=== PATIENT | male | born 1980 | race African-American/Black ===

== ENCOUNTER 2016-03-31 12:33 | Emergency (ER) | payer OTHER ==
[~2016-03-31] VITALS: Ht 154.9 cm; Wt 102.1 kg
[2016-03-31 12:41] VITALS: BP 196/115; PULSE 79; RESP 20; TEMP 98.6; O2SAT 98
--- NOTE | 2016-03-31 12:42 | NUR ---
Patient to ER bed 3 to gown for evaluation. Side rails up. Report given to Sebastian BRITT.
--- NOTE | 2016-03-31 12:50 | NUR ---
Pt AAOx 4 c/o Cough x 2 wks. Pt h/o CHF, DM and HTN. Will continuing to monitor.
--- NOTE | 2016-03-31 13:00 | NUR ---
ER at bedside examining patient.
[2016-03-31 13:36] LABS: BILIRUBIN,URINE NEGATIVE (NEGATIVE); BLOOD, URINE 2+ (NEGATIVE); CLARITY/URINE SL HAZY (CLEAR); COLOR,URINE YELLOW (YELLOW); GLUCOSE,URINE 3+ (NEGATIVE); KETONES,URINE NEGATIVE (NEGATIVE); LEUKOCYTE ESTERASE ,URINE NEGATIVE (NEGATIVE); NITRITE, URINE NEGATIVE (NEGATIVE); PH,URINE 5.5 (5.0-8.0); PROTEIN URINE 3+ (NEGATIVE); UROBILINOGEN,URINE 0.2 (0.2-1.0)
[2016-03-31 13:39] LABS: BASOPHILS # (AUTO) 0.2 K/uL (0.0-0.2); EOSINOPHILS # (AUTO) 0.1 K/uL (0.0-0.4); EOSINOPHILS % (AUTO) 1.7 % (0.0-4.0); HEMATOCRIT 35.2 % (36-54); HEMOGLOBIN 11.7 g/dL (14.0-18.0); LYMPHOCYTES # (AUTO) 1.9 K/uL (1.0-5.5); LYMPHOCYTES % (AUTO) 33.2 % (20.5-51.5); MEAN CORPUSCULAR HEMOGLOBIN 28 pg (27-31); MEAN CORPUSCULAR HGB CONC 33 % (32-36); MEAN CORPUSCULAR VOLUME 84 fL (79.0-98.0); MONOCYTES # (AUTO) 0.3 K/uL (0.0-1.0); MONOCYTES % (AUTO) 5.5 % (1.7-9.3); NEUTROPHILS # (AUTO) 3.3 K/uL (1.8-7.7); NEUTROPHILS % (AUTO) 56.6 % (40.0-70.0); PLATELET COUNT (AUTO) 310 K/uL (130-430); RED CELL DISTRIBUTION WIDTH 12.9 % (9.0-15.0); WHITE BLOOD COUNT (AUTO) 5.8 K/uL (4.8-10.8)
[2016-03-31 13:42] LABS: CALCIUM 8.3 mg/dL (8.4-11.0); CREATININE 1.38 mg/dL (0.55-1.30); POTASSIUM 3.8 mmol/L (3.5-5.1)
[2016-03-31 13:44] LABS: INR 0.9 (0.80-1.20)
[2016-03-31 13:45] LABS: BACTERIA,URINE RARE /HPF (None Seen); MUCUS,URINE 1+ /LPF (None Seen); WBC,URINE NONE SEEN /HPF (0-3)
[2016-03-31 13:47] LABS: ALBUMIN 2.3 g/dL (3.4-4.8); TOTAL BILIRUBIN 0.2 mg/dL (0.0-1.0); TOTAL PROTEIN, SERUM 6.2 g/dL (6.4-8.3)
[2016-03-31] MEDS ORDERED: INSULIN REGULAR, HUMAN 10 UNITS/0.1 ML INJ IVP ONE (14:15)
[2016-03-31] MEDS ORDERED: POTASSIUM CHLORIDE 20 MEQ TAB.PRT.SR PO ONE (14:15)
--- NOTE | 2016-03-31 14:30 | NUR ---
Pt tolerated medication well.Continuing to monitor. Will reasses in 1 hr.
--- NOTE | 2016-03-31 15:20 | NUR ---
Recheck BS 160.Dr Moseley informed. Pt to have meal tray and monitoring, however BP is 195/133. Pt to receive BP meds.
[2016-03-31] MEDS ORDERED: cloNIDine HCL 0.1 MG TABLET PO ONE (15:30)
--- NOTE | 2016-03-31 16:00 | NUR ---
Pt's FS 163, BP 151/90
[2016-03-31 16:30] VITALS: BP 151/90; PULSE 80; RESP 20; TEMP 98.4; O2SAT 98
--- NOTE | 2016-03-31 16:30 | NUR ---
Patient given written and verbal discharge instructions and verbalizes understanding. ER MD discussed with patient the results and treatment provided. Given copies of tests performed in ER. Patient in stable condition. ID arm band removed. IV catheter removed intact and dressing applied, no active bleeding. Patient educated on pain management and to follow up with PMD. Pain Scale 0. Opportunity for questions provided and answered.
== END 2016-03-31 16:30 | disposition home or self-care (01) ==
LOC: SED 12:33
DX: E11.65 Type 2 diabetes mellitus with hyperglycemia (principal); I11.0 Hypertensive heart disease with heart failure; I50.9 Heart failure, unspecified; Z88.0 Allergy status to penicillin; Z91.013 Allergy to seafood
CPT/HCPCS: 36415; 71010; 74000-TC; 80053; 81000-TC; 82962; 83880; 84484; 85025; 85610-TC; 93005; 96374; 99285; J1815

== ENCOUNTER 2017-08-31 11:57 | Inpatient (IN) | payer OTHER ==
[~2017-08-31] VITALS: Ht 154.9 cm; Wt 102.6 kg
[2017-08-31 12:05] VITALS: BP_SYST 228
[2017-08-31] MEDS ORDERED: KETOROLAC TROMETHAMINE 30 MG VIAL IVP ONE (12:30)
[2017-08-31] MEDS ORDERED: ONDANSETRON HCL 4 MG/2 ML VIAL IVP ONE (12:30)
[2017-08-31] MEDS ORDERED: NACL 0.9% 1,000 ML IV ONE (12:30)
[2017-08-31 12:59] LABS: BILIRUBIN,URINE NEGATIVE (NEGATIVE); BLOOD, URINE 3+ (NEGATIVE); CLARITY/URINE SL HAZY (CLEAR); COLOR,URINE YELLOW (YELLOW); GLUCOSE,URINE 3+ (NEGATIVE); KETONES,URINE NEGATIVE (NEGATIVE); LEUKOCYTE ESTERASE ,URINE NEGATIVE (NEGATIVE); NITRITE, URINE NEGATIVE (NEGATIVE); PROTEIN URINE 3+ (NEGATIVE); UROBILINOGEN,URINE 0.2 (0.2-1.0)
[2017-08-31 13:09] LABS: BACTERIA,URINE FEW /HPF (None Seen); WBC,URINE 0-3 /HPF (0-3)
[2017-08-31 13:12] LABS: CALCIUM 8.2 mg/dL (8.4-11.0); POTASSIUM 4.7 mmol/L (3.5-5.1)
[2017-08-31 13:13] LABS: BASOPHILS # (AUTO) 0.1 K/uL (0.0-0.2); BASOPHILS % (AUTO) 1.7 % (0.0-2.0); EOSINOPHILS # (AUTO) 0.1 K/uL (0.0-0.4); EOSINOPHILS % (AUTO) 2.8 % (0.0-4.0); HEMATOCRIT 35.7 % (36-54); HEMOGLOBIN 11.9 g/dL (14.0-18.0); LYMPHOCYTES # (AUTO) 1.5 K/uL (1.0-5.5); LYMPHOCYTES % (AUTO) 30.4 % (20.5-51.5); MEAN CORPUSCULAR HEMOGLOBIN 28 pg (27-31); MEAN CORPUSCULAR HGB CONC 34 % (32-36); MEAN CORPUSCULAR VOLUME 84 fL (79.0-98.0); MONOCYTES # (AUTO) 0.3 K/uL (0.0-1.0); MONOCYTES % (AUTO) 5.8 % (1.7-9.3); NEUTROPHILS # (AUTO) 2.8 K/uL (1.8-7.7); NEUTROPHILS % (AUTO) 59.3 % (40.0-70.0); PLATELET COUNT (AUTO) 256 K/uL (130-430); RED BLOOD CELL COUNT(AUTO) 4.25 MIL/uL (4.2-6.2); RED CELL DISTRIBUTION WIDTH 14.1 % (9.0-15.0); WHITE BLOOD COUNT (AUTO) 4.8 K/uL (4.8-10.8)
[2017-08-31 13:15] LABS: INR 0.9 (0.80-1.20); PROTHROMBIN TIME 9.2 SECS (9.5-12.5)
[2017-08-31] MEDS ORDERED: hydrALAZINE HCL 20 MG/ML VIAL IVP ONE (13:15)
[2017-08-31 13:16] LABS: CREATININE 8.77 mg/dL (0.55-1.30)
[2017-08-31 13:17] LABS: ALBUMIN 2.5 g/dL (3.4-4.8); TOTAL BILIRUBIN 0.4 mg/dL (0.0-1.0)
[2017-08-31] MEDS ORDERED: INSU100I26 SQ (13:56)
[2017-08-31] MEDS ORDERED: LISI-600 PO (13:56)
[2017-08-31] MEDS ORDERED: METOPROLOL TARTRATE 5 MG/5 ML VIAL IVP ONE (14:15)
[2017-08-31] MEDS ORDERED: D5NS 1,000 ML IV ONE (14:15)
[2017-08-31] MEDS ORDERED: LEVOFLOXACIN 500 MG/D5W 100 ML IV ONE (14:15)
[2017-08-31 15:06] VITALS: BP_SYST 140
[2017-08-31] MEDS ORDERED: ONDANSETRON HCL 4 MG/2 ML VIAL IVP PRN ×2 (16:00→22:15)
[2017-08-31] MEDS ORDERED: ACETAMINOPHEN 325 MG TABLET PO PRN ×2 (16:00→22:15)
[2017-08-31 16:50] VITALS: BP_SYST 152
[2017-08-31] MEDS: HYDROcodone/ACETAMIN 5-325 MG TAB (NORCO/ VICODIN) PO PRN ×2 (19:30→23:10)
[2017-08-31 20:00] VITALS: BP_SYST 145
[2017-08-31] MEDS ORDERED: HYDROcodone/ACETAMIN 5-325 MG TAB (NORCO/ VICODIN) PO PRN (22:15)
[2017-08-31] MEDS ORDERED: DEXTROSE 50% JECT 50 ML DISP.SYRIN IVP PRN (22:15)
[2017-08-31] MEDS ORDERED: LORazepam 2 MG/ML VIAL IVP PRN (22:15)
[2017-08-31] MEDS: NACL 0.9% 1,000 ML IV SCH (23:09)
[2017-09-01] VITALS (7 sets, daily range): BP systolic 102–200
[2017-09-01] MEDS: HYDROcodone/ACETAMIN 10-325 MG TAB PO PRN ×3 (03:24→15:52)
[2017-09-01] MEDS: INSULIN REGULAR, HUMAN 100 UNITS/ML, 10 ML VIAL (novoLIN R) SUBCUT PRN ×2 (06:10→11:27)
[2017-09-01 06:32] LABS: CALCIUM 7.8 mg/dL (8.4-11.0); PHOSPHORUS 5.8 mg/dL (2.7-4.5); POTASSIUM 4.2 mmol/L (3.5-5.1)
[2017-09-01 06:39] LABS: BASOPHILS % (AUTO) 0.9 % (0.0-2.0); EOSINOPHILS # (AUTO) 0.1 K/uL (0.0-0.4); EOSINOPHILS % (AUTO) 2.7 % (0.0-4.0); HEMOGLOBIN 11.4 g/dL (14.0-18.0); LYMPHOCYTES % (AUTO) 42.2 % (20.5-51.5); MEAN CORPUSCULAR HEMOGLOBIN 29 pg (27-31); MEAN CORPUSCULAR HGB CONC 35 % (32-36); MEAN CORPUSCULAR VOLUME 83 fL (79.0-98.0); MONOCYTES # (AUTO) 0.3 K/uL (0.0-1.0); NEUTROPHILS # (AUTO) 2.3 K/uL (1.8-7.7); NEUTROPHILS % (AUTO) 48.2 % (40.0-70.0); PLATELET COUNT (AUTO) 229 K/uL (130-430); RED BLOOD CELL COUNT(AUTO) 3.99 MIL/uL (4.2-6.2); RED CELL DISTRIBUTION WIDTH 14.2 % (9.0-15.0); WHITE BLOOD COUNT (AUTO) 4.7 K/uL (4.8-10.8)
[2017-09-01 06:41] LABS: TOTAL IRON BIND. CAPACITY 176 ug/dL (250-450)
[2017-09-01 06:44] LABS: CREATININE 8.4 mg/dL (0.55-1.30)
[2017-09-01 07:08] LABS: C-REACTIVE PROTEIN QUANT 0.6 mg/dL (0-0.5)
[2017-09-01 07:39] LABS: ERYTHROCYTE SEDIMENTATION RATE 38 MM/HR (0-15)
[2017-09-01] MEDS: LISINOPRIL 20 MG TABLET PO SCH (08:54)
[2017-09-01] MEDS: NACL 0.9% 1,000 ML IV SCH ×3 (09:06→21:59)
[2017-09-01] MEDS: LEVOFLOXACIN 500 MG/D5W 100 ML IV SCH (09:56)
[2017-09-01] MEDS ORDERED: GENTAMICIN 80 mg/100 mL NS 100 ML IV ONE (12:30)
[2017-09-01 15:51] LABS: CHLORIDE,URINE RANDOM 56 mmol/L (55-125); URINE SODIUM, RANDOM 43 mmol/L (40-220)
[2017-09-01] MEDS: cloNIDine HCL 0.1 MG TABLET PO PRN (15:52)
[2017-09-02] VITALS (7 sets, daily range): BP systolic 161–199
[2017-09-02] MEDS: cloNIDine HCL 0.1 MG TABLET PO PRN ×3 (00:12→11:22)
[2017-09-02] MEDS: INSULIN REGULAR, HUMAN 100 UNITS/ML, 10 ML VIAL (novoLIN R) SUBCUT PRN ×2 (06:47→20:26)
[2017-09-02] MEDS: LISINOPRIL 20 MG TABLET PO SCH (08:12)
[2017-09-02] MEDS: LEVOFLOXACIN 500 MG/D5W 100 ML IV SCH (08:12)
[2017-09-02] MEDS: HYDROcodone/ACETAMIN 5-325 MG TAB (NORCO/ VICODIN) PO PRN (08:26)
[2017-09-02 08:59] LABS: ANION GAP 7 (5-15); CALCIUM 8.4 mg/dL (8.4-11.0); CHLORIDE 103 mmol/L (98-107); CREATININE 6.82 mg/dL (0.55-1.30); GLUCOSE 122 mg/dL (70-99); PHOSPHORUS 4.6 mg/dL (2.7-4.5); POTASSIUM 4.7 mmol/L (3.5-5.1); SODIUM SERUM 136 mmol/L (136-145); UREA NITROGEN, BLOOD 44 mg/dL (8-21)
[2017-09-02 09:01] LABS: GFR AFRICAN AMERICAN 12 mL/min (>90)
[2017-09-02 09:03] LABS: HEPATITIS B SURFACE AG Negative (Negative); HEPATITIS C VIRUS AB <0.1 s/co ratio (0.0-0.9)
[2017-09-02 09:04] LABS: BASOPHILS # (AUTO) 0.1 K/uL (0.0-0.2); EOSINOPHILS # (AUTO) 0.1 K/uL (0.0-0.4); EOSINOPHILS % (AUTO) 2.4 % (0.0-4.0); HEMOGLOBIN 13.3 g/dL (14.0-18.0); LYMPHOCYTES # (AUTO) 1.9 K/uL (1.0-5.5); LYMPHOCYTES % (AUTO) 34.3 % (20.5-51.5); MEAN CORPUSCULAR HEMOGLOBIN 27 pg (27-31); MEAN CORPUSCULAR HGB CONC 32 % (32-36); MEAN CORPUSCULAR VOLUME 85 fL (79.0-98.0); MONOCYTES # (AUTO) 0.2 K/uL (0.0-1.0); MONOCYTES % (AUTO) 3.9 % (1.7-9.3); NEUTROPHILS # (AUTO) 3.1 K/uL (1.8-7.7); NEUTROPHILS % (AUTO) 57.4 % (40.0-70.0); PLATELET COUNT (AUTO) 293 K/uL (130-430); RED BLOOD CELL COUNT(AUTO) 4.84 MIL/uL (4.2-6.2); RED CELL DISTRIBUTION WIDTH 13.9 % (9.0-15.0); WHITE BLOOD COUNT (AUTO) 5.4 K/uL (4.8-10.8)
[2017-09-02 09:11] LABS: C-REACTIVE PROTEIN QUANT < 0.2 mg/dL (0-0.5)
[2017-09-02 10:20] LABS: ERYTHROCYTE SEDIMENTATION RATE 33 MM/HR (0-15)
[2017-09-02] MEDS ORDERED: NIFEDIPINE 60 MG TABLET.SA (PROCARDIA XL 60 MG) PO ONE (11:15)
[2017-09-02 12:19] LABS: CREATININE,URINE 48.2 MG/DL (30-125)
[2017-09-02] MEDS ORDERED: LISINOPRIL 20 MG TABLET PO ONE (12:40)
[2017-09-02] MEDS ORDERED: METOPROLOL SUCCINATE 50 MG TAB.SR.24H (TOPROL XL) PO ONE (12:40)
[2017-09-02 13:03] LABS: CREATININE 6.8 mg/dL (0.55-1.30)
[2017-09-02 13:04] LABS: PATIENT WEIGHT 218.3 LBS
[2017-09-02 13:05] LABS: CREATININE CLEARANCE,URINE 1.6 ml/min (80-120)
[2017-09-02 13:06] LABS: TPROTEIN U,24HR 1135.9 mg/24HR (0-130)
[2017-09-02] MEDS: NACL 0.9% 1,000 ML IV SCH (16:02)
[2017-09-02 18:18] LABS: ANTI NUCLEAR AB WITH REFLEX Negative (Negative)
[2017-09-02] MEDS: ATORVASTATIN 20 MG TABLET PO SCH (20:22)
[2017-09-02] MEDS: NIFEDIPINE 30 MG TAB.ER.24 PO SCH (20:22)
[2017-09-03] VITALS (7 sets, daily range): BP systolic 142–183
[2017-09-03] MEDS: cloNIDine HCL 0.1 MG TABLET PO PRN ×2 (00:02→17:20)
[2017-09-03] MEDS: NACL 0.9% 1,000 ML IV SCH ×3 (05:06→16:45)
[2017-09-03 06:35] LABS: BASOPHILS # (AUTO) 0.1 K/uL (0.0-0.2); BASOPHILS % (AUTO) 1.4 % (0.0-2.0); EOSINOPHILS # (AUTO) 0.2 K/uL (0.0-0.4); EOSINOPHILS % (AUTO) 2.1 % (0.0-4.0); HEMATOCRIT 40.6 % (36-54); HEMOGLOBIN 13.4 g/dL (14.0-18.0); LYMPHOCYTES # (AUTO) 2.1 K/uL (1.0-5.5); LYMPHOCYTES % (AUTO) 27.8 % (20.5-51.5); MEAN CORPUSCULAR HEMOGLOBIN 28 pg (27-31); MEAN CORPUSCULAR HGB CONC 33 % (32-36); MEAN CORPUSCULAR VOLUME 84 fL (79.0-98.0); MONOCYTES # (AUTO) 0.4 K/uL (0.0-1.0); MONOCYTES % (AUTO) 5.7 % (1.7-9.3); NEUTROPHILS # (AUTO) 4.6 K/uL (1.8-7.7); PLATELET COUNT (AUTO) 287 K/uL (130-430); RED BLOOD CELL COUNT(AUTO) 4.84 MIL/uL (4.2-6.2); RED CELL DISTRIBUTION WIDTH 13.6 % (9.0-15.0); WHITE BLOOD COUNT (AUTO) 7.4 K/uL (4.8-10.8)
[2017-09-03 07:22] LABS: ERYTHROCYTE SEDIMENTATION RATE 16 MM/HR (0-15)
[2017-09-03] MEDS: NIFEDIPINE 60 MG TABLET.SA (PROCARDIA XL 60 MG) PO SCH (08:40)
[2017-09-03] MEDS: METOPROLOL SUCCINATE 50 MG TAB.SR.24H (TOPROL XL) PO SCH (08:40)
[2017-09-03] MEDS: LEVOFLOXACIN 500 MG/D5W 100 ML IV SCH (08:42)
[2017-09-03] MEDS: HYDROcodone/ACETAMIN 10-325 MG TAB PO PRN ×2 (08:47→23:03)
[2017-09-03] MEDS ORDERED: LISINOPRIL 20 MG TABLET PO SCH (09:00)
[2017-09-03 15:29] LABS: ALANINE AMINOTRANSFERASE 23 U/L (12-78); ALBUMIN 2.2 g/dL (3.4-4.8); ANION GAP 9 (5-15); ASPARTATE AMINOTRANSFERASE 26 U/L (10-37); CALCIUM 7.8 mg/dL (8.4-11.0); CHLORIDE 101 mmol/L (98-107); CREATININE 5.58 mg/dL (0.55-1.30); GLUCOSE 125 mg/dL (70-99); PHOSPHORUS 3.8 mg/dL (2.7-4.5); POTASSIUM 5.4 mmol/L (3.5-5.1); SODIUM SERUM 131 mmol/L (136-145); TOTAL BILIRUBIN 0.1 mg/dL (0.0-1.0); UREA NITROGEN, BLOOD 43 mg/dL (8-21)
[2017-09-03 15:32] LABS: C-REACTIVE PROTEIN QUANT < 0.2 mg/dL (0-0.5); GFR AFRICAN AMERICAN 15 mL/min (>90)
[2017-09-03] MEDS: ATORVASTATIN 20 MG TABLET PO SCH (21:37)
[2017-09-03] MEDS: NIFEDIPINE 30 MG TAB.ER.24 PO SCH (21:37)
[2017-09-03] MEDS: INSULIN REGULAR, HUMAN 100 UNITS/ML, 10 ML VIAL (novoLIN R) SUBCUT PRN (21:45)
[2017-09-04] MEDS: DEXTROSE 50% JECT 50 ML DISP.SYRIN IVP PRN ×2 (02:10→08:12)
[2017-09-04 02:28] VITALS: BP_SYST 123
[2017-09-04 06:59] LABS: ANION GAP 6 (5-15); CALCIUM 7.4 mg/dL (8.4-11.0); CHLORIDE 102 mmol/L (98-107); CREATININE 5.39 mg/dL (0.55-1.30); GLUCOSE 132 mg/dL (70-99); PHOSPHORUS 3.7 mg/dL (2.7-4.5); SODIUM SERUM 132 mmol/L (136-145); UREA NITROGEN, BLOOD 48 mg/dL (8-21)
[2017-09-04 07:02] LABS: BASOPHILS # (AUTO) 0.1 K/uL (0.0-0.2); BASOPHILS % (AUTO) 0.9 % (0.0-2.0); EOSINOPHILS # (AUTO) 0.2 K/uL (0.0-0.4); EOSINOPHILS % (AUTO) 3.4 % (0.0-4.0); HEMATOCRIT 37.4 % (36-54); HEMOGLOBIN 12.7 g/dL (14.0-18.0); LYMPHOCYTES # (AUTO) 2.3 K/uL (1.0-5.5); LYMPHOCYTES % (AUTO) 40.8 % (20.5-51.5); MEAN CORPUSCULAR HEMOGLOBIN 28 pg (27-31); MEAN CORPUSCULAR HGB CONC 34 % (32-36); MEAN CORPUSCULAR VOLUME 84 fL (79.0-98.0); MONOCYTES # (AUTO) 0.3 K/uL (0.0-1.0); NEUTROPHILS # (AUTO) 2.7 K/uL (1.8-7.7); NEUTROPHILS % (AUTO) 48.9 % (40.0-70.0); PLATELET COUNT (AUTO) 244 K/uL (130-430); RED BLOOD CELL COUNT(AUTO) 4.48 MIL/uL (4.2-6.2); RED CELL DISTRIBUTION WIDTH 13.8 % (9.0-15.0); WHITE BLOOD COUNT (AUTO) 5.6 K/uL (4.8-10.8)
[2017-09-04] MEDS: NACL 0.9% 1,000 ML IV SCH ×2 (07:14→17:00)
[2017-09-04 07:47] LABS: GFR AFRICAN AMERICAN 15 mL/min (>90); POTASSIUM 5.8 mmol/L (3.5-5.1)
[2017-09-04 07:48] LABS: C-REACTIVE PROTEIN QUANT < 0.2 mg/dL (0-0.5)
[2017-09-04 08:30] VITALS: BP_SYST 169
[2017-09-04] MEDS: LEVOFLOXACIN 500 MG/D5W 100 ML IV SCH (08:40)
[2017-09-04] MEDS: NIFEDIPINE 60 MG TABLET.SA (PROCARDIA XL 60 MG) PO SCH (08:41)
[2017-09-04] MEDS: METOPROLOL SUCCINATE 50 MG TAB.SR.24H (TOPROL XL) PO SCH (08:42)
[2017-09-04] MEDS ORDERED: SODIUM POLYSTYRENE SULFONATE 15 GM/60 ML UDBTL PO ONE (09:15)
[2017-09-04 10:55] LABS: ERYTHROCYTE SEDIMENTATION RATE 4 MM/HR (0-15)
[2017-09-04 12:15] VITALS: BP_SYST 149
[2017-09-04 16:25] VITALS: BP_SYST 132
[2017-09-04] MEDS: HYDROcodone/ACETAMIN 10-325 MG TAB PO PRN (18:38)
[2017-09-04 20:15] VITALS: BP_SYST 160
[2017-09-04] MEDS: ATORVASTATIN 20 MG TABLET PO SCH (21:03)
[2017-09-04] MEDS: NIFEDIPINE 30 MG TAB.ER.24 PO SCH (21:04)
[2017-09-05 00:10] VITALS: BP_SYST 166
[2017-09-05 01:00] VITALS: BP_SYST 135
[2017-09-05 07:05] LABS: ANION GAP 8 (5-15); CALCIUM 7.2 mg/dL (8.4-11.0); CHLORIDE 103 mmol/L (98-107); CREATININE 4.66 mg/dL (0.55-1.30); GLUCOSE 109 mg/dL (70-99); PHOSPHORUS 3.6 mg/dL (2.7-4.5); POTASSIUM 5.7 mmol/L (3.5-5.1); SODIUM SERUM 133 mmol/L (136-145); UREA NITROGEN, BLOOD 56 mg/dL (8-21)
[2017-09-05 07:16] LABS: BASOPHILS # (AUTO) 0.1 K/uL (0.0-0.2); BASOPHILS % (AUTO) 0.8 % (0.0-2.0); EOSINOPHILS # (AUTO) 0.2 K/uL (0.0-0.4); EOSINOPHILS % (AUTO) 2.7 % (0.0-4.0); HEMATOCRIT 45.1 % (36-54); HEMOGLOBIN 14.8 g/dL (14.0-18.0); LYMPHOCYTES # (AUTO) 3.2 K/uL (1.0-5.5); MEAN CORPUSCULAR HEMOGLOBIN 28 pg (27-31); MEAN CORPUSCULAR HGB CONC 33 % (32-36); MEAN CORPUSCULAR VOLUME 84 fL (79.0-98.0); MONOCYTES # (AUTO) 0.3 K/uL (0.0-1.0); MONOCYTES % (AUTO) 4.4 % (1.7-9.3); NEUTROPHILS % (AUTO) 45.1 % (40.0-70.0); PLATELET COUNT (AUTO) 277 K/uL (130-430); RED BLOOD CELL COUNT(AUTO) 5.39 MIL/uL (4.2-6.2); RED CELL DISTRIBUTION WIDTH 14.2 % (9.0-15.0); WHITE BLOOD COUNT (AUTO) 6.8 K/uL (4.8-10.8)
[2017-09-05 07:45] VITALS: BP_SYST 149
[2017-09-05 07:58] LABS: GFR AFRICAN AMERICAN 18 mL/min (>90)
[2017-09-05 07:59] LABS: C-REACTIVE PROTEIN QUANT < 0.2 mg/dL (0-0.5)
[2017-09-05] MEDS: METOPROLOL SUCCINATE 50 MG TAB.SR.24H (TOPROL XL) PO SCH (08:44)
[2017-09-05] MEDS: NIFEDIPINE 60 MG TABLET.SA (PROCARDIA XL 60 MG) PO SCH (08:45)
[2017-09-05] MEDS: LEVOFLOXACIN 500 MG/D5W 100 ML IV SCH ×2 (08:49→14:33)
[2017-09-05] MEDS: FUROSEMIDE 40 MG/4 ML VIAL IVP ONE ×2 (08:49→14:32)
[2017-09-05 08:56] LABS: ERYTHROCYTE SEDIMENTATION RATE 11 MM/HR (0-15)
[2017-09-05] MEDS ORDERED: FUROSEMIDE 20 MG/2 ML VIAL IVP ONE (11:00)
[2017-09-05 11:07] LABS: PROTHROMBIN TIME 9.7 SECS (9.5-12.5)
[2017-09-05] MEDS: cloNIDine HCL 0.1 MG TABLET PO PRN (11:37)
[2017-09-05] MEDS: INSULIN REGULAR, HUMAN 100 UNITS/ML, 10 ML VIAL (novoLIN R) SUBCUT PRN ×3 (11:52→21:28)
[2017-09-05] MEDS: MAGNESIUM SULFATE 50 ML IV ONE ×2 (11:54→16:17)
[2017-09-05 12:55] VITALS: BP_SYST 148
[2017-09-05] MEDS: HYDROcodone/ACETAMIN 10-325 MG TAB PO PRN ×2 (16:18→21:25)
[2017-09-05 16:40] VITALS: BP_SYST 150
[2017-09-05 20:28] VITALS: BP_SYST 153
[2017-09-05] MEDS: NIFEDIPINE 30 MG TAB.ER.24 PO SCH (21:24)
[2017-09-05] MEDS: ATORVASTATIN 20 MG TABLET PO SCH (21:24)
[2017-09-06 00:22] VITALS: BP_SYST 131
[2017-09-06] MEDS: INSULIN REGULAR, HUMAN 100 UNITS/ML, 10 ML VIAL (novoLIN R) SUBCUT PRN ×3 (06:59→21:07)
[2017-09-06 07:06] LABS: EOSINOPHILS # (AUTO) 0.3 K/uL (0.0-0.4); LYMPHOCYTES # (AUTO) 3.3 K/uL (1.0-5.5); NEUTROPHILS # (AUTO) 3.3 K/uL (1.8-7.7); RED BLOOD CELL COUNT(AUTO) 4.91 MIL/uL (4.2-6.2); WHITE BLOOD COUNT (AUTO) 7.4 K/uL (4.8-10.8)
[2017-09-06 07:28] LABS: BASOPHILS # (AUTO) 0.1 K/uL (0.0-0.2); BASOPHILS % (AUTO) 1.6 % (0.0-2.0); EOSINOPHILS % (AUTO) 4.1 % (0.0-4.0); HEMATOCRIT 41.5 % (36-54); HEMOGLOBIN 13.7 g/dL (14.0-18.0); LYMPHOCYTES % (AUTO) 44.5 % (20.5-51.5); MEAN CORPUSCULAR HEMOGLOBIN 28 pg (27-31); MEAN CORPUSCULAR HGB CONC 33 % (32-36); MEAN CORPUSCULAR VOLUME 85 fL (79.0-98.0); MONOCYTES # (AUTO) 0.4 K/uL (0.0-1.0); MONOCYTES % (AUTO) 5.4 % (1.7-9.3); NEUTROPHILS % (AUTO) 44.4 % (40.0-70.0); PLATELET COUNT (AUTO) 260 K/uL (130-430); RED CELL DISTRIBUTION WIDTH 14.6 % (9.0-15.0)
[2017-09-06 07:54] LABS: ANION GAP 7 (5-15); CHLORIDE 102 mmol/L (98-107); CREATININE 4.68 mg/dL (0.55-1.30); GLUCOSE 186 mg/dL (70-99); PHOSPHORUS 4.1 mg/dL (2.7-4.5); SODIUM SERUM 131 mmol/L (136-145); UREA NITROGEN, BLOOD 67 mg/dL (8-21)
[2017-09-06 08:00] VITALS: BP_SYST 154
[2017-09-06 08:06] LABS: GFR AFRICAN AMERICAN 18 mL/min (>90); POTASSIUM 5.9 mmol/L (3.5-5.1)
[2017-09-06 08:07] LABS: C-REACTIVE PROTEIN QUANT < 0.2 mg/dL (0-0.5); CALCIUM 7.4 mg/dL (8.4-11.0)
[2017-09-06] MEDS: SODIUM POLYSTYRENE SULFONATE 15 GM/60 ML UDBTL PO ONE ×2 (08:30→09:16)
[2017-09-06 09:02] LABS: ERYTHROCYTE SEDIMENTATION RATE 10 MM/HR (0-15)
[2017-09-06] MEDS: LEVOFLOXACIN 500 MG/D5W 100 ML IV SCH (09:15)
[2017-09-06] MEDS: NIFEDIPINE 60 MG TABLET.SA (PROCARDIA XL 60 MG) PO SCH (09:15)
[2017-09-06] MEDS: METOPROLOL SUCCINATE 50 MG TAB.SR.24H (TOPROL XL) PO SCH (09:16)
[2017-09-06] MEDS: HYDROcodone/ACETAMIN 10-325 MG TAB PO PRN ×2 (09:28→21:04)
[2017-09-06] MEDS ORDERED: CITRIC ACID/SODIUM CITRATE 30 ML UDC PO ONE (09:45)
[2017-09-06] MEDS ORDERED: DEXTROSE 50% JECT 50 ML DISP.SYRIN IVP ONE (10:15)
[2017-09-06] MEDS ORDERED: INSULIN REGULAR, HUMAN 100 UNITS/ML, 10 ML VIAL SUBCUT ONE (10:15)
[2017-09-06 15:23] LABS: ATYPICAL pANCA <1:20 titer (Neg:<1:20); CYTOPLASMIC (C-ANCA) <1:20 titer (Neg:<1:20); CYTOPLASMIC (P-ANCA) <1:20 titer (Neg:<1:20)
[2017-09-06 16:38] VITALS: BP_SYST 132
[2017-09-06 20:13] VITALS: BP_SYST 131
[2017-09-06] MEDS: NIFEDIPINE 30 MG TAB.ER.24 PO SCH (21:04)
[2017-09-06] MEDS: ATORVASTATIN 20 MG TABLET PO SCH (21:04)
[2017-09-06] MEDS: CITRIC ACID/SODIUM CITRATE 30 ML UDC PO SCH (21:19)
[2017-09-07] MEDS: INSULIN REGULAR, HUMAN 100 UNITS/ML, 10 ML VIAL (novoLIN R) SUBCUT PRN ×2 (06:33→11:35)
[2017-09-07 07:05] LABS: CALCIUM 8.2 mg/dL (8.4-11.0); CREATININE 4.43 mg/dL (0.55-1.30); POTASSIUM 5.7 mmol/L (3.5-5.1)
[2017-09-07 08:00] VITALS: BP_SYST 164
[2017-09-07] MEDS ORDERED: SODIUM POLYSTYRENE SULFONATE 15 GM/60 ML UDBTL PO ONE (09:45)
[2017-09-07] MEDS ORDERED: FUROSEMIDE 40 MG/4 ML VIAL IVP ONE (09:45)
[2017-09-07] MEDS: CITRIC ACID/SODIUM CITRATE 30 ML UDC PO SCH ×2 (10:04→20:43)
[2017-09-07] MEDS: METOPROLOL SUCCINATE 50 MG TAB.SR.24H (TOPROL XL) PO SCH (10:07)
[2017-09-07] MEDS: NIFEDIPINE 60 MG TABLET.SA (PROCARDIA XL 60 MG) PO SCH (10:07)
[2017-09-07] MEDS: cloNIDine HCL 0.1 MG TABLET PO PRN (11:36)
[2017-09-07 11:56] VITALS: BP_SYST 164
[2017-09-07 16:11] VITALS: BP_SYST 138
[2017-09-07 20:02] VITALS: BP_SYST 156
[2017-09-07] MEDS: ATORVASTATIN 20 MG TABLET PO SCH (20:33)
[2017-09-07] MEDS: NIFEDIPINE 30 MG TAB.ER.24 PO SCH (20:34)
[2017-09-07] MEDS: HYDROcodone/ACETAMIN 10-325 MG TAB PO PRN (20:42)
[2017-09-08 00:21] VITALS: BP_SYST 148
[2017-09-08 08:00] VITALS: BP_SYST 138
[2017-09-08] MEDS: CITRIC ACID/SODIUM CITRATE 30 ML UDC PO SCH ×2 (10:15→22:19)
[2017-09-08] MEDS: METOPROLOL SUCCINATE 50 MG TAB.SR.24H (TOPROL XL) PO SCH (10:16)
[2017-09-08] MEDS: NIFEDIPINE 60 MG TABLET.SA (PROCARDIA XL 60 MG) PO SCH (10:16)
[2017-09-08 10:43] LABS: BASOPHILS % (AUTO) 0.8 % (0.0-2.0); EOSINOPHILS # (AUTO) 0.3 K/uL (0.0-0.4); EOSINOPHILS % (AUTO) 4.3 % (0.0-4.0); HEMATOCRIT 38.8 % (36-54); LYMPHOCYTES # (AUTO) 2.1 K/uL (1.0-5.5); LYMPHOCYTES % (AUTO) 35.6 % (20.5-51.5); MEAN CORPUSCULAR HEMOGLOBIN 28 pg (27-31); MEAN CORPUSCULAR HGB CONC 33 % (32-36); MEAN CORPUSCULAR VOLUME 84 fL (79.0-98.0); MONOCYTES # (AUTO) 0.3 K/uL (0.0-1.0); MONOCYTES % (AUTO) 5.5 % (1.7-9.3); NEUTROPHILS # (AUTO) 3.2 K/uL (1.8-7.7); NEUTROPHILS % (AUTO) 53.8 % (40.0-70.0); PLATELET COUNT (AUTO) 257 K/uL (130-430); RED BLOOD CELL COUNT(AUTO) 4.62 MIL/uL (4.2-6.2); RED CELL DISTRIBUTION WIDTH 14.4 % (9.0-15.0); WHITE BLOOD COUNT (AUTO) 5.9 K/uL (4.8-10.8)
[2017-09-08 10:50] LABS: CALCIUM 8.1 mg/dL (8.4-11.0); CREATININE 4.24 mg/dL (0.55-1.30); POTASSIUM 4.9 mmol/L (3.5-5.1)
[2017-09-08] MEDS: INSULIN REGULAR, HUMAN 100 UNITS/ML, 10 ML VIAL (novoLIN R) SUBCUT PRN ×2 (12:04→16:46)
[2017-09-08 12:52] VITALS: BP_SYST 163
[2017-09-08 16:58] VITALS: BP_SYST 159
[2017-09-08 20:00] VITALS: BP_SYST 158
[2017-09-08] MEDS: ATORVASTATIN 20 MG TABLET PO SCH (22:19)
[2017-09-08] MEDS: NIFEDIPINE 30 MG TAB.ER.24 PO SCH (22:19)
[2017-09-09] MEDS: INSULIN REGULAR, HUMAN 100 UNITS/ML, 10 ML VIAL (novoLIN R) SUBCUT PRN ×2 (07:02→12:04)
[2017-09-09] MEDS ORDERED: [UNRECOGNIZED DRUG - CODE] PO (07:41)
[2017-09-09] MEDS ORDERED: METO50TA7 PO (07:41)
[2017-09-09] MEDS ORDERED: INSU100V11 SUBCUT (07:41)
[2017-09-09] MEDS ORDERED: Nifedipine PO (07:41)
[2017-09-09] MEDS ORDERED: LIP20 PO (07:41)
[2017-09-09 08:06] LABS: CALCIUM 8.5 mg/dL (8.4-11.0); CREATININE 3.68 mg/dL (0.55-1.30); POTASSIUM 4.9 mmol/L (3.5-5.1)
[2017-09-09] MEDS: CITRIC ACID/SODIUM CITRATE 30 ML UDC PO SCH (08:51)
[2017-09-09] MEDS: METOPROLOL SUCCINATE 50 MG TAB.SR.24H (TOPROL XL) PO SCH (08:55)
[2017-09-09] MEDS: NIFEDIPINE 60 MG TABLET.SA (PROCARDIA XL 60 MG) PO SCH (08:55)
[2017-09-09 08:56] VITALS: BP_SYST 170
[2017-09-09] MEDS: HYDROcodone/ACETAMIN 10-325 MG TAB PO PRN (09:03)
[2017-09-09 12:50] VITALS: BP_SYST 161
[2017-09-09] MEDS: cloNIDine HCL 0.1 MG TABLET PO PRN (13:01)
[2017-09-09 13:49] VITALS: BP_SYST 151
== END 2017-09-09 15:20 | disposition home or self-care (01) | DRG 720 ==
LOC: SED 11:57 → SMU 14:14
PROVIDERS: ADMIT Preventive Medicine Preventive Medicine/Occupational Environmental Medicine; ATTEND Preventive Medicine Preventive Medicine/Occupational Environmental Medicine
PROC: 05HY33Z Insertion of Infusion Device into Upper Vein, Percutaneous Approach (ICD-10-PCS; principal; 2017-09-05)
PROC: B54NZZA Ultrasonography of Left Upper Extremity Veins, Guidance (ICD-10-PCS; 2017-09-05)
DX: A41.9 Sepsis, unspecified organism (principal); N17.0 Acute kidney failure with tubular necrosis; E87.2 Acidosis; I50.9 Heart failure, unspecified; I13.0 Hypertensive heart and chronic kidney disease with heart failure and stage 1 through stage 4 chronic kidney disease, or unspecified chronic kidney disease; N18.4 Chronic kidney disease, stage 4 (severe); E11.21 Type 2 diabetes mellitus with diabetic nephropathy; E11.22 Type 2 diabetes mellitus with diabetic chronic kidney disease; E11.649 Type 2 diabetes mellitus with hypoglycemia without coma; E11.65 Type 2 diabetes mellitus with hyperglycemia; N10 Acute pyelonephritis; E66.9 Obesity, unspecified; E87.5 Hyperkalemia; E87.1 Hypo-osmolality and hyponatremia; E83.52 Hypercalcemia; E11.319 Type 2 diabetes mellitus with unspecified diabetic retinopathy without macular edema; D63.1 Anemia in chronic kidney disease; E88.09 Other disorders of plasma-protein metabolism, not elsewhere classified; E83.41 Hypermagnesemia; F12.10 Cannabis abuse, uncomplicated; E83.39 Other disorders of phosphorus metabolism; Z68.41 Body mass index [BMI] 40.0-44.9, adult; Z88.0 Allergy status to penicillin; Z88.1 Allergy status to other antibiotic agents; Z91.013 Allergy to seafood; Z88.8 Allergy status to other drugs, medicaments and biological substances; Z79.899 Other long term (current) drug therapy; Z84.1 Family history of disorders of kidney and ureter; Z83.3 Family history of diabetes mellitus; Z82.49 Family history of ischemic heart disease and other diseases of the circulatory system; Z83.2 Family history of diseases of the blood and blood-forming organs and certain disorders involving the immune mechanism
CPT/HCPCS: 36415; 71045; 80048; 80053; 81000-TC; 82435-TC; 82570-TC; 82575-TC; 82962; 83540-TC; 83550-TC; 83605; 83735-TC; 83970; 84100-TC; 84132-TC; 84156; 84302-TC; 84484; 85025; 85610-TC; 85651-TC; 85730-TC; 86038; 86140; 86256; 86803; 87040-TC; 87086; 87340; 93005; 93306; 96361; 96365; 96375; 99285; C1751; J0360; J1580; J1815; J1885; J1940; J1956; J2060; J2405; J3475; J3490; J7030; J7042; J7060